=== PATIENT | male | born 1960 | race Caucasian/White ===

== ENCOUNTER 2019-11-18 18:47 | Emergency (ER) | payer OTHER ==
--- NOTE | 2019-11-18 19:48 | EDM.PDOC ---
ED HPI GENERAL MEDICAL PROBLEM - General Chief Complaint: Upper Extremity Injury/Pain Stated Complaint: SMASHED FINGER/LEFT HAND Time Seen by Provider: 11/18/19 19:41 Source of Information: Reports: Patient, RN Notes Reviewed History Limitations: Reports: No Limitations - History of Present Illness INITIAL COMMENTS - FREE TEXT/NARRATIVE: 59-year-old gentleman presents emergency department today with injury to digits 4 and 5 on his left hand he accidentally caught the distal tips in a wood splitter - Related Data Allergies Allergy/AdvReac Type Severity Reaction Status Date / Time No Known Allergies Allergy Verified 11/18/19 19:29 Home Meds: Home Meds NK [No Known Home Meds] 11/18/19 [History] Past Medical History - Past Health History Medical/Surgical History: Denies Medical/Surgical History Social & Family History - Tobacco Use Smoking Status *Q: Never Smoker Review of Systems - Review of Systems Review Of Systems: See Below Skin: Reports: Other (Crush injury) Neurological: Reports: No Symptoms ED EXAM, GENERAL - Physical Exam Exam: See Below Free Text/Narrative:: Examination of the left hand he has full range of motion of all digits he does have some edema and hematoma forming underneath the nailbed digit #5 digit #4 appears grossly intact however it is tender to the touch and distal tip radial pulses +2 sensation is intact except for digit #5 because of the edema it is difficult to move and numb ED TRAUMA EXTREMITY PROCEDURES - Additional/Other Procedure(s) Other (Free Text) Procedure(s): Preoperative diagnosis subungual hematoma Postoperative diagnosis same Surgeon Cr OfficerMD Verbal consent was obtained prior to procedure risks and benefits were discussed patient is in agreement and wishes to proceed. Anesthesia none Estimated blood loss minimal Specimens none Summary procedure: Timeout was performed prior to initiation procedure identified correct site, correct patient and correct procedure. Electrocautery was used just to torres the nailbed a small amount of fluid was relieved which improved pain control. Complications none apparent Disposition discharged home with radiograph disc tetanus 2011 Course - Vital Signs Last Recorded V/S: Last Vital Signs Temp 97.7 F 11/18/19 19:32 Pulse 75 11/18/19 19:32 Resp 16 11/18/19 19:32 BP 139/86 11/18/19 19:32 Pulse Ox 98 11/18/19 19:32 - Orders/Labs/Meds Orders: Active Orders 24 hr Category Date Time Status Hand Comp Min 3V Lt [CR] Stat Exams 11/18/19 19:43 Taken Departure - Departure Time of Disposition: 20:31 Disposition: Home, Self-Care 01 Condition: Fair Clinical Impression: Crushing injury of left little finger, initial encounter, Crushing injury of left ring finger, initial encounter Closed fracture of distal phalanx of left little finger Qualifiers: Encounter type: initial encounter Fracture alignment: nondisplaced Qualified Code(s): S62.667A - Nondisplaced fracture of distal phalanx of left little finger, initial encounter for closed fracture Subungual hematoma of left little finger Qualifiers: Encounter type: initial encounter Qualified Code(s): S60.152A - Contusion of left little finger with damage to nail, initial encounter - Discharge Information Instructions: Crush Injury of the Hand, [id number], Subungual Hematoma Referrals: PCP,None [Primary Care Provider] - Forms: ED Department Discharge Additional Instructions: Use ibuprofen for baseline pain control use hydrocodone for breakthrough pain, please follow-up with your primary care provider upon return home Sepsis Event Note - Evaluation Sepsis Screening Result: No Definite Risk - Focused Exam Vital Signs: Vital Signs Temp Pulse Resp BP Pulse Ox 11/18/19 19:32 97.7 F 75 16 139/86 98 11/18/19 19:24 97.7 F 75 16 139/86 98 Date Exam was Performed: 11/18/19 Time Exam was Performed: 20:26 - My Orders Last 24 Hours: My Active Orders 11/18/19 19:43 Hand Comp Min 3V Lt [CR] Stat - Assessment/Plan Last 24 Hours: My Active Orders 11/18/19 19:43 Hand Comp Min 3V Lt [CR] Stat Plan: Assessment Acuity = acute Site and laterality = crush injury digits 4 and 5 left hand distal tuft fracture digit #5 subungual hematoma status post I&D digit #5 Etiology = trauma Manifestations = pain Location of injury = Home Lab values = x-ray describes a fracture above Plan He will follow-up with his primary care upon return home, hydrocodone 5/325 1 tab p.o. 3 times daily PRN total #10 This note was dictated using [employer] voice recognition software please call with any questions on syntax or grammar.
--- NOTE | 2019-11-19 15:46 | CRLCR ---
INDICATION: trauma, pain, mostly over 4th and 5th finger HISTORY: Trauma. Pain. COMPARISON: None. TECHNIQUE: Left hand, 5 views. FINDINGS: There is a nondisplaced fracture involving the left 5th distal phalanx, which is seen best on the lateral projections. No additional injury is identified. There is no articular erosion. There is no periarticular osteopenia. Mineralization is normal. There is no radiopaque foreign body. The carpus is intact. There is joint space loss in the peripheral joints of the left hand, particularly the 3rd DIP joint. Neutral ulnar variance. Vascular calcifications. IMPRESSION: Nondisplaced fracture of the left 5th distal phalanx. Dictated by Reji Michaels MD @ 11/19/2019 3:44:37 PM Dictated by: Reji Michaels MD @ 11/19/2019 15:44:42 (Electronically Signed)
== END 2019-11-18 20:41 | disposition home or self-care (01) ==
LOC: JP.ED 18:47
DX: S67.197A Crushing injury of left little finger, initial encounter (principal); S67.195A Crushing injury of left ring finger, initial encounter; S62.667A Nondisplaced fracture of distal phalanx of left little finger, initial encounter for closed fracture; S60.152A Contusion of left little finger with damage to nail, initial encounter; W27.8XXA Contact with other nonpowered hand tool, initial encounter
CPT/HCPCS: 11740; 73130-LT; 99283-25